=== PATIENT | female | born 1980 | race Caucasian/White ===

== ENCOUNTER 2016-04-10 11:22 | Emergency (ER) | payer OTHER | END 2016-04-10 14:17 | disposition home or self-care (01) | LOC: ER 11:22 | DX: F41.1 Generalized anxiety disorder (principal); I10 Essential (primary) hypertension; F32.9 Major depressive disorder, single episode, unspecified; G43.909 Migraine, unspecified, not intractable, without status migrainosus; Z79.899 Other long term (current) drug therapy; Z88.5 Allergy status to narcotic agent | CPT/HCPCS: 96374; 96375; J2060 ==